=== PATIENT | male | born 1930 | race African-American/Black ===

== ENCOUNTER 2017-01-22 19:34 | Emergency (ER) | payer OTHER ==
[2017-01-22 16:04] LABS: ALLENS TEST Pos; BE (BASE EXCESS) -2.3 MEQ/L (0 +/- 2.5); CARBOXYHEMOGLOBIN 1.4 % (0-3); HEMOBLOGIN CONTENT 11.6 G/DL (14-18); INSTRUMENT SERIAL # 8087; METHEMOGLOBIN 0.1 % (0-3); O2 CONTENT 14.7 VOL% (18-24); OPERATOR ID 14335; PCO2 (CO2 TENSION) 42 MMHG (35-45); PO2 (O2 TENSION) 62 MMHG (79-93); SAMPLE Arterial; pH 7.36 (7.37-7.43)
[2017-01-22 17:06] LABS: BASOPHILS 0.6 %; BASOPHILS ABSOLUTE 0.03 10/3/uL (0.0-0.16); EOSINOPHILS 4.9 %; EOSINOPHILS ABSOLUTE 0.23 10/3/uL (0.0-0.53); ER CBC TAT 0 Hrs 08 Mins; HEMATOCRIT 36.9 % (40.0-51.0); HEMOGLOBIN 11.5 g/dL (13.6-17.8); IMMATURE GRANULOCYTES 0.2 %; IMMATURE GRANULOCYTES ABSOLUTE 0.01 10/3/uL (0.0-0.11); LYMPHOCYTES 37.3 %; LYMPHOCYTES ABSOLUTE 1.74 10/3/uL (0.67-4.30); MEAN CORPUS HGB CONC 31.2 g/dL (32.0-36.0); MEAN CORPUSCULAR HEMOGLOB 26.6 pg (26.0-34.0); MEAN CORPUSCULAR VOLUME 85.2 fL (80-100); MEAN PLATELET VOLUME 9.1 fL (9.2-13.0); MONOCYTES 10.5 %; MONOCYTES ABSOLUTE 0.49 10/3/uL (0.21-1.20); NEUTROPHILS 46.5 %; NEUTROPHILS ABSOLUTE 2.16 10/3/uL (2.02-8.40); PLATELET COUNT 192 10/3/uL (150-400); RBC DISTRIBUTION WIDTH 14.7 % (12.0-16.0); RED CELL COUNT 4.33 10/6/uL (4.7-6.1); WHITE BLOOD CELLS 4.7 10/3/uL (4.5-10.5)
[2017-01-22 17:07] LABS: MANUAL DIFF NO %
[2017-01-22 17:19] LABS: CALCIUM, SERUM 8.2 MG/DL (8.5-10.4); CHLORIDE, SERUM 108 MMOL/L (96-112); CO2 (CARBON DIOXIDE) 28 MMOL/L (24-34); GFR AFRICAN AMERICAN 53 ML/MIN (>=60); GFR NON AFRICAN AMERICAN 45 ML/MIN (>=60); GLUCOSE, SERUM 113 MG/DL (60-99); POTASSIUM, SERUM 4.5 MMOL/L (3.5-5.3); SODIUM, SERUM 143 MMOL/L (135-148)
[2017-01-22 17:20] LABS: BUN (BLOOD UREA NITROGEN) 30 MG/DL (6-23)
[~2017-01-22 19:34] MED LIST: ACET500CAP PO; ALPHAGAN OPH; ASAB PO; COSOPT OPH; DIOV160 PO; DIOVAN320 MG PO; FLOMAX4 PO; GLUCOPHAGE1000 MG PO; GLUCOTRO10 PO; GLUCOTROL5 PO; GLUCPH PO; HALF81 PO; LIPITOR40 PO; MAX25 PO; MAXZIDE PO; MULTIPLE VIT PO; MULTIVITAMI1 PO; NORV10 PO; PLAVIX PO; PROAIR HFA INH; T PO; TUMSROLL PO; XALAT OPH; ZOCOR40 PO
== END 2017-01-22 19:40 | disposition home or self-care (01) ==
LOC: ER 19:34
PROVIDERS: Emergency Medicine
DX: J06.9 Acute upper respiratory infection, unspecified (principal); I12.9 Hypertensive chronic kidney disease with stage 1 through stage 4 chronic kidney disease, or unspecified chronic kidney disease; E11.22 Type 2 diabetes mellitus with diabetic chronic kidney disease; N18.9 Chronic kidney disease, unspecified; J44.9 Chronic obstructive pulmonary disease, unspecified; Z95.1 Presence of aortocoronary bypass graft; Z87.891 Personal history of nicotine dependence; Z79.82 Long term (current) use of aspirin; Z79.899 Other long term (current) drug therapy
CPT/HCPCS: 36600; 71010; 80048; 82805; 82962; 85025; 93005; 99285